=== PATIENT | female | born 2000 | race Hispanic/Latino ===

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

== ENCOUNTER 2022-12-18 12:18 | Emergency (ER) | payer OTHER, SELFPAY ==
[2022-12-18 12:20] VITALS: BP 105/64; PULSE 85; RESP 16; TEMP 36.2; O2SAT 99
--- NOTE | 2022-12-18 12:59 | ED.ABDPAIN ---
HPI - Abdominal Pain General Chief Complaint: Abdominal Pain Stated Complaint: Abd pain Time Seen by Provider: 12/18/22 12:24 History of Present Illness HPI narrative: Patient is a 22-year-old female presenting with acute on chronic abdominal pain. Patient states that for the last couple of weeks she has had sharp suprapubic and bilateral lower quadrant sharp abdominal pain. States that she had this about a year ago and saw her [employer]SULT[employer] and a cause was never found. States that her symptoms have returned over the last couple of weeks. Last menstrual period was approximately 10 days ago. She denies abnormal vaginal bleeding or discharge. She also reports dyspareunia. She denies dysuria, hematuria, constipation, nausea or vomiting. States she had an episode of diarrhea yesterday. Denies fevers or chills, headache, numbness or weakness, chest pain, shortness of breath, cough, leg swelling. Related Data Allergies Allergy/AdvReac Type Severity Reaction Status Date / Time No Known Allergies Allergy Mild Verified 12/18/22 12:22 Review of Systems Review of Systems: All systems reviewed & are unremarkable except as noted in HPI and below PMFSH Past Medical History Medical History History of chlamydia Social History Social History Smoking status: Never smoker Alcohol intake: never Gender identity (if verbalized by the patient): Female Exam Narrative: GENERAL: Well-appearing, well-nourished, and in no acute distress. HEAD: Normocephalic, atraumatic. EYES: PERRLA and EOMI. ENT: Nares clear, no rhinorrhea or epistaxis. Mucous membranes moist. NECK: Supple. CHEST: Clear to auscultation. No respiratory distress. HEART: Regular rate and rhythm. Normal peripheral pulses. ABDOMEN: Soft, nontender, nondistended, no guarding or rebound EXTREMITIES: Normal range of motion. No edema. SKIN: Warm, dry, no rash. NEURO: No focal deficits. Alert and oriented x3. PSYCH: Normal mood and affect. Course Vital Signs Vital signs: Vital Signs Temperature 97.1 F L 12/18/22 12:20 Pulse Rate 85 12/18/22 12:20 Respiratory Rate 16 12/18/22 12:20 Blood Pressure 105/64 03/19/23 12:20 Pulse Oximetry 99 12/18/22 12:20 Temperature 97.1 F L 12/18/22 12:20 Pulse Rate 75 12/18/22 14:53 Respiratory Rate 18 12/18/22 14:53 Blood Pressure 101/85 12/18/22 14:53 Pulse Oximetry 100 12/18/22 14:53 MDM - Abdominal Pain MDM Narrative Medical decision making narrative: Patient is a 22-year-old female presenting with acute on chronic lower abdominal pain. Vitals within normal limits. Patient is well-appearing and in no acute distress. Exam remarkable for the above. Plan for belly labs, IV fluids, Tylenol and Toradol. Do not feel imaging is warranted at this time given her very reassuring exam and the chronicity of her symptoms. Blood work is unremarkable. Normal renal function and electrolytes. UA is noninfected. On reevaluation, the patient is sleeping comfortably. She states that her pain has improved. Discussed the reassuring work-up. Feel she is safe for outpatient work-up. Advised that she follow-up closely with her [employer] CONSULTANT as well as PCP. Appropriate return precautions were given. Patient voiced understanding and is agreeable with plan. Discharged in stable condition. Differential Diagnosis Differential diagnosis: Likely abdominal pain, constipation, endometriosis and other (UTI) Lab Data 12/18/22 13:03 12/18/22 13:03 Labs: Lab Results 12/18/22 12/18/22 12/18/22 Range/Units 13:03 13:03 13:03 WBC 6.2 (4.5-10.0) K/mm3 RBC 4.04 L (4.2-5.4) M/mm3 Hgb 12.0 (12.0-15.0) g/dL Hct 36.3 L (37.0-47.0) % MCV 89.9 (80-100) fl MCH 29.7 (26-34) pg MCHC 33.1 (32-36) g/dl RDW 12.9 (11.5-14.5) % Plt Count 205 (150-375) k/mm3
[2022-12-18] MEDS: SODIUM CHLORIDE 0.9% IV 1,000 ML 999 ML IV CONT (13:06)
[2022-12-18 13:09] LABS: Basophils Absolute Auto 0.1 K/mm3 (0.0-0.1); Basophils Percent Auto 0.8 % (0.2-1.2); Eosinophils Absolute Auto 0.2 K/mm3 (0-0.3); Eosinophils Percent Auto 2.7 % (0-4.4); Hematocrit 36.3 % (37.0-47.0); Immature Granulocyte Absolute 0.01 K/mm3 (0.00-0.031); Immature Granulocyte Percent A 0.2 % (0-0.5); Lymphocytes Absolute Auto 2.25 K/mm3 (0.9-3.2); Lymphocytes Percent Auto 36.3 % (18.3-44.2); Mean Corpuscular HGB Conc 33.1 g/dl (32-36); Mean Corpuscular Hemoglobin 29.7 pg (26-34); Mean Corpuscular Volume 89.9 fl (80-100); Mean Platelet Volume 10.4 fl (7.4-10.4); Monocytes Absolute Auto 0.6 K/mm3 (0.1-0.6); Monocytes Percent Auto 10.2 % (2.6-8.5); Neutrophils Absolute Auto 3.1 K/mm3 (1.3-6.7); Neutrophils Percent Auto 49.8 % (45.5-73.1); Platelet Count Result 205 k/mm3 (150-375); Red Blood Count 4.04 M/mm3 (4.2-5.4); Red Cell Distribution Width 12.9 % (11.5-14.5); White Blood Count 6.2 K/mm3 (4.5-10.0)
[2022-12-18 13:11] LABS: Add Urine Microscopic? NO; Appearance Urine Clear (Clear); Bilirubin Urine Negative (Negative); Blood Urine Negative (Negative); Color Urine Yellow (Yellow); Glucose Urine UA Negative (Negative); Ketones Urine Negative (Negative); Leukocyte Esterase Ur Negative LEU/UL (Negative); Nitrate Urine Negative (Negative); Protein Urine Negative (Negative); Specific Grav Ur 1.016 (1.001-1.035); Urobilinogen Urine 0.2 mg/dL (<2.0)
[2022-12-18] MEDS: KETOROLAC 15 MG/ML VIAL (*BKC) IV PUSH (13:21)
[2022-12-18 13:27] VITALS: BP 94/64; PULSE 70; RESP 18; O2SAT 100
[2022-12-18 13:28] LABS: Alanine Aminotransferase 19 U/L (6-35); Albumin Level 4.4 g/dL (3.5-5.1); Alkaline Phosphatase 43 U/L (38-126); Anion Gap 4 mmol/L (8-16); Aspartate Amino Transferase 24 U/L (14-36); Bilirubin,Total 0.8 mg/dL (0.2-1.3); Blood Urea Nitrogen 12 mg/dL (7-17); Calcium 9.2 mg/dL (8.4-10.2); Carbon Dioxide 28 mmol/L (22-30); Chloride 105 mmol/L (98-107); Estimated CRCL calculation 79 ml/min; Estimated Glomerular Filt Rate > 60; Glucose 77 mg/dL (65-110); Lipase 120 U/L (23-300); Sodium 137 mmol/L (137-145)
[2022-12-18 13:30] VITALS: BP 107/93; PULSE 69; RESP 18; O2SAT 100
[2022-12-18 13:47] VITALS: BP 77/47; PULSE 82; RESP 20; O2SAT 100
[2022-12-18 14:00] VITALS: BP 93/38; PULSE 80; RESP 18; O2SAT 100
[2022-12-18 14:53] VITALS: BP 101/85; PULSE 75; RESP 18; O2SAT 100
== END 2022-12-18 14:54 | disposition home or self-care (01) ==
PROVIDERS: Emergency Provider Emergency Medicine; PCP Pediatrics
DX: R10.2 Pelvic and perineal pain (principal)
CPT/HCPCS: 36415; 80053; 81003; 83690; 85025; 96361; 96374; 96375; 99284; J0131; J1885; J7030

== ENCOUNTER 2023-02-03 11:51 | Outpatient (CLI) | payer OTHER, SELFPAY ==
--- NOTE | ~2023-02-03 | US_ITS ---
EXAMINATION: US pelvic complete w TV DATE: 02/03/2023 11:44 INDICATION: Pelvic and perineal pain. TECHNIQUE: Multiple transabdominal and transvaginal sonographic images of the pelvis were obtained. COMPARISON: None. FINDINGS: TRANSABDOMINAL ULTRASOUND: The uterus measures 6.6 x 3.0 x 4.3 cm. There is no free fluid in the pelvis. TRANSVAGINAL ULTRASOUND: The endometrial complex measures 2 mm in thickness. The right ovary measures 4.3 x 2.0 x 1.6 cm. The left ovary measures 3.1 x 0.9 x 1.1 cm. There is normal vascular flow in the ovaries. IMPRESSION: 1. Normal pelvis. Reviewed, dictated and finalized at location A. IMPRESSION: 1. Normal pelvis.
[2023-02-03 13:32] LABS: Hepatitis B Surface Antigen Negative (Negative)
[2023-02-03 13:34] LABS: HIV 1/2 Ab P24 Ag Result Negative (Negative)
[2023-02-03 13:50] LABS: Hepatitis C Virus Antibody Negative (Negative)
[2023-02-06 10:05] LABS: Rapid Plasma Reagin Non-Reactive (NonReactive)
== END 2023-02-03 11:52 | disposition home or self-care (01) ==
PROVIDERS: PCP Pediatrics; Visit Provider Obstetrics & Gynecology
DX: R10.2 Pelvic and perineal pain (principal); Z20.2 Contact with and (suspected) exposure to infections with a predominantly sexual mode of transmission
CPT/HCPCS: 36415; 76830; 76856; 86592; 86703; 86803; 87340; G0432